=== PATIENT | female | born 1945 | race Caucasian/White ===

== ENCOUNTER → 2016-05-18 | Day surgery (SDC) | payer MEDICARE ==
[~2016-05-18] VITALS: Ht 149.9 cm; Wt 55.8 kg
[~2016-05-18] MED LIST: /PANT40TA; ACET65TA; ACETAMINOPHEN 325 MG TAB PO PRN; ACETYLCHOLINE OPHTH SOLN 1% 2ML As Ordered ONE; ACETYLCHOLINE OPHTH SOLN 1% 2ML XX ONE; ANTI25TA; ASPI1TAB PO; ASPI325T PO; ASPI32ECTA PO; ASPI81TA85 PO; ATOR40TA PO; AUGM500T34 PO; AcetaZOLAMIDE 500 MG ER CAP PO ONE; BABY81CH; BALANCED SALT IRRIGATION SOL 500ML GLASS BOTTLE (FOR OR EYE COMPOUND) IR ONE; BENA25CA PO; BSS with VANC/TOB/EPI for EYE CASES IR ONE; CALCIUM; CEFUROXIME 1MG/0.1ML INTRACAMERAL INJ As Ordered ONE; CEFUROXIME 1MG/0.1ML INTRACAMERAL INJ ICAM ONE; CHLO125TA PO; COLA100C2; CYCLOPENTOLATE 2% OPHTH SOLN XX ONE; D5W/0.2% SODIUM CHLORIDE 250 ML IV SCH; DOCU100C PO; FISHCAP; HEALON DUET (HEALON 10MG/ML 0.55ML & HEALON ENDOCOAT 30MG/ML 0.85ML) As Ordered ONE; HEALON DUET (HEALON 10MG/ML 0.55ML & HEALON ENDOCOAT 30MG/ML 0.85ML) XX ONE; KETO5OPD OS; KETOROLAC 0.5% OPHTH SOLN OS ONE; LEVO50TA45 PO; LEVO75TA4 PO; LIDOCAINE 1% SDV 5 ML VIAL As Ordered ONE; LIDOCAINE 1% SDV 5 ML VIAL XX ONE; LIDOCAINE 4% INJ 5 ML AMP OU ONE; LISI-538 PO; LISI10TA4; LISI10TA4 PO; METO12TA PO; MIDAZOLAM INJ 2 MG/2 ML VIAL (J2250) As Ordered ONE; MIRA255PW OR; NORV5TAB; OCUF0.3D OS; OFLOXACIN 0.3 % (OCUFLOX) OPTH SOL 5ML OS ONE; PAXI10TA2 PO; PHENYLEPHRINE 2.5% OPHTH SOL 2ML XX ONE; PLAV75TA2; POVIDONE-IODINE 5% OPHTH PREP SOL 30ML As Ordered ONE; PRED1SUS OS; PROPARACAINE 0.5% OPHTH SOL 15ML OS PRN; TRIMETHOBENZAMIDE 300 MG CAP PO PRN; TROPICAMIDE 1% OPHTH SOLN 2 ML XX ONE; TYLE325T5 PO; VITA200015 PO; VITAMI; VITMTA PO; ZEST20TA8 PO; ZOFR8TAB; fentaNYL 100 MCG/2 ML INJECTION (J3010) As Ordered ONE
[2016-05-18 10:05] VITALS: BP 189/86
--- NOTE | 2016-05-18 13:31 | RO ---
DATE OF PROCEDURE: 05/18/2016 PREPROCEDURE DIAGNOSES: Age-related nuclear cataract and astigmatism, left eye. POSTPROCEDURE DIAGNOSES: Age-related nuclear cataract and astigmatism, left eye. PROCEDURE PERFORMED: Phacoemulsification and posterior chamber intraocular lens implantation with toric lens, left eye. Lens used was a ZCT 600 19.5 diopter, 6 diopter cylinder placed at 20 degrees. SURGEON: Rowan Du MD BINDING BENCH WORKER: ANESTHESIA: Topical with sedation. DESCRIPTION OF PROCEDURE: The patient was prepped and draped in the usual fashion. A lid speculum was placed between the lids. The eye was fixated. A stab incision was made to the anterior chamber, and 1% nonpreserved Lidocaine was instilled. Then, viscoelastic was instilled. The eye was refixated. A 2.75 mm sapphire keratome was used to make a clear corneal temporal limbal incision. Capsulorrhexis was begun with a 30-gauge bent needle and then carried out in a circular fashion with capsulorrhexis forceps. The lens was hydrodissected, and then the phacoemulsification unit was used to make a groove in the nucleus and two meridians. The nucleus was then cracked into four quadrants. Each quadrant was removed with the phacoemulsification unit. Any remaining cortex was removed with the I and A unit. Capsular bag was refilled with viscoelastic. A posterior chamber intraocular lens was placed in the capsular bag without difficulty. Any remaining viscoelastic was removed with the I and A unit. The wound was hydrated, and Miochol and cefuroxime were instilled into the anterior chamber.
== END | disposition home or self-care (01) ==
LOC: M SDC 06:55
PROVIDERS: ATTEND Ophthalmology
DX: H25.12 Age-related nuclear cataract, left eye (principal); H52.202 Unspecified astigmatism, left eye; I11.9 Hypertensive heart disease without heart failure; E03.9 Hypothyroidism, unspecified; M81.0 Age-related osteoporosis without current pathological fracture; R41.3 Other amnesia; F41.9 Anxiety disorder, unspecified; E78.5 Hyperlipidemia, unspecified; Z91.19 Patient's noncompliance with other medical treatment and regimen; E04.1 Nontoxic single thyroid nodule; R60.9 Edema, unspecified; E55.9 Vitamin D deficiency, unspecified; Z86.73 Personal history of transient ischemic attack (TIA), and cerebral infarction without residual deficits; Z87.891 Personal history of nicotine dependence; Z79.899 Other long term (current) drug therapy; Z79.82 Long term (current) use of aspirin; Z88.1 Allergy status to other antibiotic agents; Z91.040 Latex allergy status
CPT/HCPCS: 66984; J2250; J3010; V2787

== ENCOUNTER 2016-10-24 14:21 | Emergency (ER) | payer MEDICARE, OTHER ==
[~2016-10-24] VITALS: Ht 147.3 cm; Wt 54.5 kg
[~2016-10-24 14:21] MED LIST changes: -ACETAMINOPHEN 325 MG TAB PO PRN; -ACETYLCHOLINE OPHTH SOLN 1% 2ML As Ordered ONE; -ACETYLCHOLINE OPHTH SOLN 1% 2ML XX ONE; +ASPI325T24 PO; -ASPI32ECTA PO; -ATOR40TA PO; +ATOR40TA75 PO; -AcetaZOLAMIDE 500 MG ER CAP PO ONE; -BALANCED SALT IRRIGATION SOL 500ML GLASS BOTTLE (FOR OR EYE COMPOUND) IR ONE; -BSS with VANC/TOB/EPI for EYE CASES IR ONE; -CEFUROXIME 1MG/0.1ML INTRACAMERAL INJ As Ordered ONE; -CEFUROXIME 1MG/0.1ML INTRACAMERAL INJ ICAM ONE; -CYCLOPENTOLATE 2% OPHTH SOLN XX ONE; -D5W/0.2% SODIUM CHLORIDE 250 ML IV SCH; -HEALON DUET (HEALON 10MG/ML 0.55ML & HEALON ENDOCOAT 30MG/ML 0.85ML) As Ordered ONE; -HEALON DUET (HEALON 10MG/ML 0.55ML & HEALON ENDOCOAT 30MG/ML 0.85ML) XX ONE; -KETOROLAC 0.5% OPHTH SOLN OS ONE; -LIDOCAINE 1% SDV 5 ML VIAL As Ordered ONE; -LIDOCAINE 1% SDV 5 ML VIAL XX ONE; -LIDOCAINE 4% INJ 5 ML AMP OU ONE; -MIDAZOLAM INJ 2 MG/2 ML VIAL (J2250) As Ordered ONE; +OCUF0.25 OS; -OCUF0.3D OS; -OFLOXACIN 0.3 % (OCUFLOX) OPTH SOL 5ML OS ONE; -PHENYLEPHRINE 2.5% OPHTH SOL 2ML XX ONE; -POVIDONE-IODINE 5% OPHTH PREP SOL 30ML As Ordered ONE; -PROPARACAINE 0.5% OPHTH SOL 15ML OS PRN; -TRIMETHOBENZAMIDE 300 MG CAP PO PRN; -TROPICAMIDE 1% OPHTH SOLN 2 ML XX ONE; -fentaNYL 100 MCG/2 ML INJECTION (J3010) As Ordered ONE
--- NOTE | 2016-10-24 15:22 | REP ---
Clinical: Acute altered mental status. Possible cerebrovascular accident. Correlation: MRI dated 07/30/2015 . Findings: Age-related atrophy and microvascular ischemic changes are appreciated. The ventricles and sulci are symmetric. Roy-white differentiation is maintained. There is no evidence for acute intracranial hemorrhage, mass/mass effect, pathology or infarction. No extra-axial fluid collection. Calvarium is intact. Paranasal sinuses and mastoid air cells are clear. Impression: Age related atrophy and microvascular ischemic changes. No acute intracranial hemorrhage, infarction, or mass/mass effect. Signed by Eduardo Pugh MD 10/24/2016 03:14 P
--- NOTE | 2016-10-24 15:33 | REP ---
Clinical: Cerebrovascular accident . Comparison: 07/30/2015 . Findings: The mediastinum and cardiac silhouette are stable and within normal limits for portable technique. The lung bruno are clear without acute consolidation, effusion, or pneumothorax. Skeletal structures are intact. Impression: Normal portable chest x-ray Signed by Eduardo Pugh MD 10/24/2016 03:25 P
[2016-10-24 15:50] LABS: BASO % 0.6 % (0.0-1.0); EOS # 0.1 K/mm3 (0.0-0.50); EOS % 1.3 % (0.0-3.0); LARGE UNSTAINED CELL # 0.2 K/mm3 (0.0-0.4); LARGE UNSTAINED CELL % 1.8 % (0.0-4.0); LYMPH # 1.8 K/mm3 (1.5-4.5); LYMPH % 18.4 % (24.0-44.0); MEAN CORPUSCULAR HEMOGLOBIN 32.4 pg (27.0-33.0); MEAN CORPUSCULAR HGB CONC 34.5 g/dl (32.0-36.5); MEAN CORPUSCULAR VOLUME 94.1 fl (80.0-96.0); MONO # 0.6 K/mm3 (0.0-0.8); NEUTROPHILS # 7.1 K/mm3 (1.8-7.7); NEUTROPHILS % 71.9 % (36.0-66.0); PLATELET COUNT, AUTOMATED 216 k/mm3 (150-450); RED CELL DISTRIBUTION WIDTH 12.8 % (11.5-14.5); WHITE BLOOD COUNT 9.9 K/mm3 (4.0-10.0)
[2016-10-24 15:57] LABS: INR 0.92
--- NOTE | 2016-10-24 15:59 | REP ---
[place] lumbar spine five views: There are no comparisons. Vertebral body heights and alignment are normal. There is parallax artifact in the upper lumbar/ lower thoracic spine. There is mild degenerative disc disease at every lumbar level. There is no spondylolysis or spondylolisthesis. There is mild facet osteoarthritis and L4, L5, S1. The pedicles and sacroiliac articulations are unremarkable. There is diffuse demineralization. Impression: Mild multilevel degenerative disc disease. Vertebral body heights appear normal. On the lateral view there is parallax artifact in the lower thoracic/ upper lumbar spine. There is mild facet osteoarthritis of the lower lumbar levels. If symptoms persist or worsen, consider MRI or CT. Signed by Js Lopez MD 10/24/2016 03:50 P
[2016-10-24 16:18] LABS: ANION GAP 4 MEQ/L (8-16); BLOOD UREA NITROGEN 15 MG/DL (7-18); CALCIUM LEVEL 9.2 MG/DL (8.8-10.2); CARBON DIOXIDE LEVEL 30 MEQ/L (21-32); CHLORIDE LEVEL 111 MEQ/L (98-107); GLOMERULAR FILTRATION RATE 57.9 (>39); GLUCOSE, FASTING 82 MG/DL (83-110); SODIUM LEVEL 145 MEQ/L (136-145)
[2016-10-24 18:24] VITALS: BP 180/94
--- NOTE | 2016-10-24 19:50 | REPUSA ---
Clinical history: syncope. Comparison: 07/30/2015. Technique: [id number] MRA images of the brain were obtained without administration of contrast. 3 -D MIP images were also obtained. Findings: The vascular structures extending from the distal carotid and vertebrobasilar arterial syst ems, through the kas[place] of [place], demonstrate normal caliber and contour.. The right vertebral arter y is dominant, but appears stable. There is no evidence of aneurysm, stenosis, or thrombosis. Impression: Unremarkable MRA examination of the brain.
--- NOTE | 2016-10-24 19:50 | REPUSA ---
MRI of the brain Clinical history: ssyncope. Comparison: 07/30/2015. Technique: Multiecho multiplanar MRI images of the brain were obtained without administration of cont rast. Diffusion weighted images with ADC mapping was also obtained. Findings: The ventricles and sulci are symmetric bilaterally. The brain parenchyma demonstrates diffuse, conf luent areas of T2 hyperintensity throughout the subcortical and periventricular white matter. This i s grossly unchanged since the prior study. There is no midline shift, mass effect, or extra-axial flu id collection. The midline intracranial structures do not demonstrate any gross abnormalities. The ce rvical cranial junction is intact. The orbits are unremarkable. The visualized paranasal sinuses and mastoid air cells are clear. The osseous structures and superficial soft tissues are unremarkable. Th e vascular structures demonstrate appropriate flow voids. Impression: No significant change in diffuse white matter changes, most consistent with severe chroni c small vessel ischemic disease. No evidence of acute infarct or hemorrhage identified at this time. Overall stable examination.
--- NOTE | 2016-10-24 20:07 | ECGEPIP ---
Stationary ECG Study [facility] - ED Test Date: 2016-10-24 Pat Name: JUAQUIN CARDOSO Department: Room: - Gender: F Supervisor Personnel Clerks: luis : 1945 Requested By: Agata Narayanan Order Number: [id number] Reading MD: Agata Narayanan Measurements Intervals [place] Rate: 69 P: 34 TN: 145 QRS: -32 QRSD: 95 T: 17 QT: 401 QTc: 430 Interpretive Statements SINUS RHYTHM MARKED LEFT AXIS DEVIATION NSTTW ABNORMALITY SIMILAR 07/30/15 Electronically Signed On 10-24-2016 20:07:11 EDT by Agata Narayanan
== END 2016-10-24 20:48 | disposition home or self-care (01) ==
LOC: M ED 15:48
DX: S00.03XA Contusion of scalp, initial encounter (principal); R29.810 Facial weakness; W19.XXXA Unspecified fall, initial encounter; Y92.89 Other specified places as the place of occurrence of the external cause; Y93.89 Activity, other specified; Y99.8 Other external cause status; E07.9 Disorder of thyroid, unspecified; Z86.73 Personal history of transient ischemic attack (TIA), and cerebral infarction without residual deficits; R42 Dizziness and giddiness; Z79.899 Other long term (current) drug therapy; Z79.82 Long term (current) use of aspirin; Z91.040 Latex allergy status

== ENCOUNTER → 2016-10-31 | Outpatient (REF) | payer MEDICARE, OTHER ==
[2016-10-31 21:48] LABS: FREE T4 1.17 NG/DL (0.76-1.46)
== END ==
LOC: M SFHCADAM 12:59
PROVIDERS: ATTEND Family Medicine
DX: R42 Dizziness and giddiness (principal); R05 Cough; H91.90 Unspecified hearing loss, unspecified ear; E04.1 Nontoxic single thyroid nodule
CPT/HCPCS: 84439; 84443; G0463

== ENCOUNTER 2017-03-29 07:22 | Day surgery (SDC) | payer OTHER ==
[~2017-03-29] VITALS: Ht 147.3 cm; Wt 54.0 kg
[~2017-03-29 07:22] MED LIST changes: +ACETAMINOPHEN 325 MG TAB PO PRN; +CYCLOPENTOLATE 2% OPHTH SOLN 2ML BTL OD ONE; +LIDOCAINE 3.5 % 1ML OPHTH TOPICAL GEL OU ONE; +OFLOXACIN 0.3 % (OCUFLOX) OPTH SOL 5ML OD ONE; +PHENYLEPHRINE 2.5% OPHTH SOL 2ML OD ONE; +PROPARACAINE 0.5% OPHTH SOL 15ML OD PRN; +TROPICAMIDE 1% OPHTH SOLN 2ML OD ONE
[2017-03-29] MEDS ORDERED: LIDOCAINE 1% SDV 5 ML VIAL As Ordered ONE (09:30)
[2017-03-29] MEDS ORDERED: POVIDONE-IODINE 5% OPHTH PREP SOL 30ML As Ordered ONE (09:30)
[2017-03-29] MEDS ORDERED: ACETYLCHOLINE OPHTH SOLN 1% 2ML (MIOCHOL-E) As Ordered ONE (09:30)
[2017-03-29] MEDS ORDERED: HEALON DUET (HEALON 10MG/ML 0.55ML & HEALON ENDOCOAT 30MG/ML 0.85ML) As Ordered ONE (09:31)
[2017-03-29] MEDS ORDERED: BALANCED SALT IRRIGATION SOLUTION 500ML BAG (FOR OR EYE MACHINE) As Ordered ONE (09:31)
[2017-03-29] MEDS ORDERED: CEFUROXIME 1MG/0.1ML INTRACAMERAL INJ As Ordered ONE (09:31)
[2017-03-29] MEDS ORDERED: MIDAZOLAM INJ 2 MG/2 ML VIAL (J2250) As Ordered ONE (09:58)
[2017-03-29] MEDS ORDERED: fentaNYL 100 MCG/2 ML INJECTION (J3010) As Ordered ONE (09:58)
[2017-03-29 10:40] VITALS: BP 174/86
[2017-03-29] MEDS ORDERED: AcetaZOLAMIDE 500 MG ER CAP PO ONE (10:45)
[2017-03-29] MEDS ORDERED: TRIMETHOBENZAMIDE 300 MG CAP PO PRN (10:45)
[2017-03-29] MEDS ORDERED: KETOROLAC 0.5% OPHTH SOLN OD ONE (10:45)
--- NOTE | 2017-03-29 11:23 | RO ---
DATE OF PROCEDURE: 03/29/2017 PREPROCEDURE DIAGNOSIS: Age-related nuclear cataract right eye. POSTPROCEDURE DIAGNOSIS: Age-related nuclear cataract right eye. PROCEDURE: Phacoemulsification and posterior chamber intraocular lens implantation, right eye. Lens used is an AU 00T0 18.5 diopter. SURGEON: Rowan Du MD FEED WEIGHER: ANESTHESIA: Topical with sedation. DESCRIPTION OF PROCEDURE: The patient was prepped and draped in the usual fashion. A lid speculum was placed between the lids. The eye was fixated. A stab incision was made to the anterior chamber, and 1% nonpreserved Lidocaine was instilled. Then, viscoelastic was instilled. The eye was refixated. A 2.75 mm sapphire keratome was used to make a clear corneal temporal limbal incision. Capsulorrhexis was begun with a 30-gauge bent needle and then carried out in a circular fashion with capsulorrhexis forceps. The lens was hydrodissected, and then the phacoemulsification unit was used to make a groove in the nucleus and two meridians. The nucleus was then cracked into four quadrants. Each quadrant was removed with the phacoemulsification unit. Any remaining cortex was removed with the I+A unit. Capsular bag was refilled with viscoelastic. A posterior chamber intraocular lens was placed in the capsular bag without difficulty. Any remaining viscoelastic was removed with the I+A unit. The wound was hydrated, and Miochol and cefuroxime were instilled into the anterior chamber. The patient tolerated the procedure well and went to the recovery room in stable condition.
== END 2017-03-29 10:53 | disposition home or self-care (01) ==
LOC: M SDC 07:22
PROVIDERS: ATTEND Ophthalmology
DX: H25.11 Age-related nuclear cataract, right eye (principal); I10 Essential (primary) hypertension; E78.5 Hyperlipidemia, unspecified; E04.1 Nontoxic single thyroid nodule; Z79.899 Other long term (current) drug therapy; Z79.82 Long term (current) use of aspirin; Z87.891 Personal history of nicotine dependence; Z88.0 Allergy status to penicillin
CPT/HCPCS: 66984; J2250; J3010; V2632

== ENCOUNTER 2017-07-09 10:13 | Inpatient (IN) | payer OTHER ==
[2017-07-09 10:34] LABS: BEDSIDE GLUCOSE 78 MG/DL (83-110)
[2017-07-09 10:47] LABS: BASO # 0.1 10^3/uL (0.0-0.2); BASO % 0.5 % (0.0-1.0); EOS # 0.2 10^3/uL (0.0-0.50); EOS % 1.6 % (0.0-3.0); HEMATOCRIT 45.3 % (36.0-47.0); HEMOGLOBIN 14.9 g/dl (12.0-16.0); IMMATURE GRANULOCYTE % 0.3 % (0-3.0); LYMPH # 2.4 10^3/uL (1.5-4.5); LYMPH % 21.9 % (24.0-44.0); MEAN CORPUSCULAR HEMOGLOBIN 30.4 pg (27.0-33.0); MEAN CORPUSCULAR HGB CONC 32.9 g/dl (32.0-36.5); MEAN CORPUSCULAR VOLUME 92.4 fl (80.0-96.0); MONO # 0.8 10^3/uL (0.0-0.8); MONO % 7.6 % (0.0-5.0); NEUTROPHILS # 7.4 10^3/uL (1.8-7.7); NEUTROPHILS % 68.1 % (36.0-66.0); PLATELET COUNT, AUTOMATED 252 10^3/uL (150-450); RED CELL DISTRIBUTION WIDTH 13.2 % (11.5-14.5); WHITE BLOOD COUNT 10.9 10^3/uL (4.0-10.0)
[2017-07-09 10:55] LABS: INR 0.88
[2017-07-09 10:56] LABS: PARTIAL THROMBOPLASTIN TIME 30.9 SECONDS (26.8-37.9)
[2017-07-09 10:58] LABS: ANION GAP 5 MEQ/L (8-16); BLOOD UREA NITROGEN 12 MG/DL (7-18); CALCIUM LEVEL 8.5 MG/DL (8.8-10.2); CARBON DIOXIDE LEVEL 29 MEQ/L (21-32); CHLORIDE LEVEL 109 MEQ/L (98-107); CPK CREATINE PHOSPHOKINASE 129 U/L (26-192); CREATININE FOR GFR 0.98 MG/DL (0.55-1.30); GLOMERULAR FILTRATION RATE 59.2 (>39); GLUCOSE, FASTING 88 MG/DL (70-100); POTASSIUM SERUM 3.8 MEQ/L (3.5-5.1); SODIUM LEVEL 143 MEQ/L (136-145); TROPONIN I < 0.02 NG/ML (< 0.10)
[2017-07-09 10:59] LABS: CK-MB VALUE MASS 2.5 NG/ML (0.0-3.6); MB/CK RELATIVE INDEX 1.93 (< OR =4)
[2017-07-09] MEDS: LISINOPRIL 20 MG TAB PO ×2 (16:12→21:03)
[2017-07-09 16:50] LABS: FREE T4 1.17 NG/DL (0.76-1.46)
[2017-07-09] MEDS: hydrALAZINE INJ 20 MG/ML VIAL IV (19:04)
[2017-07-09] MEDS: ASPIRIN ENTERIC 325 MG TAB PO (21:03)
[2017-07-10] MEDS: ACETAMINOPHEN TAB 650MG DOSE (2X325MG) PO (00:10)
[2017-07-10] MEDS: hydrALAZINE INJ 20 MG/ML VIAL IV ×5 (01:00→18:27)
[2017-07-10] MEDS: LEVOTHYROXINE 50MCG TABLET (0.05MG) PO (05:48)
[2017-07-10 07:49] LABS: BASO % 0.3 % (0.0-1.0); EOS # 0.1 10^3/uL (0.0-0.50); EOS % 1.3 % (0.0-3.0); HEMATOCRIT 45.1 % (36.0-47.0); IMMATURE GRANULOCYTE % 0.2 % (0-3.0); LYMPH # 1.6 10^3/uL (1.5-4.5); LYMPH % 17.4 % (24.0-44.0); MEAN CORPUSCULAR HEMOGLOBIN 30.2 pg (27.0-33.0); MEAN CORPUSCULAR HGB CONC 33.3 g/dl (32.0-36.5); MEAN CORPUSCULAR VOLUME 90.7 fl (80.0-96.0); MONO # 0.5 10^3/uL (0.0-0.8); MONO % 5.8 % (0.0-5.0); NEUTROPHILS # 6.7 10^3/uL (1.8-7.7); PLATELET COUNT, AUTOMATED 246 10^3/uL (150-450); RED BLOOD COUNT 4.97 10^6/uL (4.00-5.40); RED CELL DISTRIBUTION WIDTH 13.2 % (11.5-14.5)
[2017-07-10 08:24] LABS: ALBUMIN 3.5 GM/DL (3.2-5.2); ALBUMIN/GLOBULIN RATIO 1.17 (1.00-1.93); ALKALINE PHOSPHATASE 85 U/L (45-117); ALT/SGPT 17 U/L (12-78); ANION GAP 8 MEQ/L (8-16); AST/SGOT 15 U/L (7-37); BILIRUBIN,TOTAL 0.6 MG/DL (0.2-1.0); BLOOD UREA NITROGEN 12 MG/DL (7-18); CALCIUM LEVEL 8.3 MG/DL (8.8-10.2); CARBON DIOXIDE LEVEL 25 MEQ/L (21-32); CHLORIDE LEVEL 109 MEQ/L (98-107); CREATININE FOR GFR 0.75 MG/DL (0.55-1.30); GLOMERULAR FILTRATION RATE > 60.0 (>39); GLUCOSE, FASTING 91 MG/DL (70-100); POTASSIUM SERUM 3.6 MEQ/L (3.5-5.1); SODIUM LEVEL 142 MEQ/L (136-145); TOTAL PROTEIN 6.5 GM/DL (6.4-8.2)
[2017-07-10] MEDS: ENOXAPARIN 30 MG/0.3 ML SYR (J1650) SC (11:02)
[2017-07-10] MEDS: levETIRAcetam 250MG TABLET (KEPPRA) PO ×2 (11:12→20:40)
[2017-07-10] MEDS ORDERED: VARIBAR PUDDING 40% w/v 230ML TUBE As Ordered (11:29)
[2017-07-10] MEDS ORDERED: E-Z-PAQUE 96% w/w SUSP 176GM BTL As Ordered (11:29)
[2017-07-10] MEDS ORDERED: VARIBAR NECTAR 40% w/v 240ML SUSP BTL As Ordered (11:29)
[2017-07-10] MEDS: NICOTINE 21MG/24HR 1 EA TRANSDERMAL TD (16:49)
[2017-07-10] MEDS: ATORVASTATIN 20 MG TAB PO (18:18)
[2017-07-10] MEDS: LISINOPRIL 20 MG TAB PO (20:41)
[2017-07-10] MEDS: ASPIRIN ENTERIC 325 MG TAB PO (20:41)
[2017-07-11] MEDS: hydrALAZINE INJ 20 MG/ML VIAL IV ×4 (01:10→18:26)
[2017-07-11] MEDS ORDERED: SLF 3 ML SYR IV (04:15)
[2017-07-11] MEDS: LEVOTHYROXINE 50MCG TABLET (0.05MG) PO (06:14)
[2017-07-11] MEDS: SLF 3 ML SYR IV ×3 (06:14→22:00)
[2017-07-11] MEDS: ENOXAPARIN 30 MG/0.3 ML SYR (J1650) SC (09:08)
[2017-07-11] MEDS: ATORVASTATIN 20 MG TAB PO (09:09)
[2017-07-11] MEDS: levETIRAcetam 250MG TABLET (KEPPRA) PO ×2 (09:09→21:00)
[2017-07-11] MEDS: LISINOPRIL 20 MG TAB PO ×2 (09:09→23:16)
[2017-07-11] MEDS: NICOTINE 21MG/24HR 1 EA TRANSDERMAL TD (09:09)
[2017-07-11] MEDS: levETIRAcetam INJection 500 MG in D5W MINI-BAG PLUS 100 ML IV (18:49)
[2017-07-11 19:15] LABS: PROLACTIN 12.4 NG/ML
[2017-07-11 21:48] LABS: AMPHETAMINES LEVEL URINE NEGATIVE (NEGATIVE); BARBITURATES URINE NEGATIVE (NEGATIVE); BENZODIAZEPINES URINE NEGATIVE (NEGATIVE); CANNABINOIDS URINE NEGATIVE (NEGATIVE); COCAINE METABOLITE URINE NEGATIVE (NEGATIVE); METHADONE URINE NEGATIVE (NEGATIVE); OPIATES URINE NEGATIVE (NEGATIVE); PHENCYCLIDINE URINE NEGATIVE (NEGATIVE)
[2017-07-11] MEDS: ASPIRIN ENTERIC 325 MG TAB PO (23:16)
[2017-07-11 23:31] LABS: BACTERIA, URINE AUTO 1+ (NEGATIVE); RBC, URINE AUTO 3 /HPF (0-3); SQUAMOUS EPITHELIAL CELL UR AU 0 /HPF (0-6); WBC, URINE AUTO 4 /HPF (0-3)
[2017-07-12] MEDS: hydrALAZINE INJ 20 MG/ML VIAL IV ×4 (01:00→18:38)
[2017-07-12 03:35] LABS: APPEARANCE, URINE CLEAR (CLEAR); BILIRUBIN, URINE AUTO NEGATIVE (NEGATIVE); BLOOD, URINE BLOOD NEGATIVE (NEGATIVE); COLOR, URINE YELLOW (YELLOW); GLUCOSE, URINE (UA) AUTO NEGATIVE (NEGATIVE); KETONE, URINE AUTO NEGATIVE (NEGATIVE); LEUKOCYTE ESTERASE, URINE AUTO TRACE (NEGATIVE); NITRITE, URINE AUTO NEGATIVE (NEGATIVE); PROTEIN, URINE AUTO NEGATIVE (NEGATIVE); SPECIFIC GRAVITY URINE AUTO 1.009 (1.002-1.035); UROBILINOGEN, URINE AUTO 0.2 mg/dL (0.0-2.0)
[2017-07-12 05:21] LABS: BASO % 0.5 % (0.0-1.0); EOS # 0.2 10^3/uL (0.0-0.50); EOS % 2.4 % (0.0-3.0); HEMATOCRIT 42.4 % (36.0-47.0); HEMOGLOBIN 14.1 g/dl (12.0-16.0); IMMATURE GRANULOCYTE % 0.2 % (0-3.0); LYMPH # 2.4 10^3/uL (1.5-4.5); LYMPH % 27.4 % (24.0-44.0); MEAN CORPUSCULAR HEMOGLOBIN 30.5 pg (27.0-33.0); MEAN CORPUSCULAR HGB CONC 33.3 g/dl (32.0-36.5); MEAN CORPUSCULAR VOLUME 91.6 fl (80.0-96.0); MONO # 0.7 10^3/uL (0.0-0.8); MONO % 7.7 % (0.0-5.0); NEUTROPHILS # 5.4 10^3/uL (1.8-7.7); NEUTROPHILS % 61.8 % (36.0-66.0); PLATELET COUNT, AUTOMATED 236 10^3/uL (150-450); RED BLOOD COUNT 4.63 10^6/uL (4.00-5.40); RED CELL DISTRIBUTION WIDTH 13.5 % (11.5-14.5); WHITE BLOOD COUNT 8.7 10^3/uL (4.0-10.0)
[2017-07-12 05:44] LABS: ALBUMIN 3.1 GM/DL (3.2-5.2); ALBUMIN/GLOBULIN RATIO 0.94 (1.00-1.93); ALKALINE PHOSPHATASE 69 U/L (45-117); ALT/SGPT 18 U/L (12-78); ANION GAP 6 MEQ/L (8-16); AST/SGOT 15 U/L (7-37); BILIRUBIN,TOTAL 0.4 MG/DL (0.2-1.0); BLOOD UREA NITROGEN 16 MG/DL (7-18); CALCIUM LEVEL 8.1 MG/DL (8.8-10.2); CARBON DIOXIDE LEVEL 27 MEQ/L (21-32); CHLORIDE LEVEL 111 MEQ/L (98-107); CREATININE FOR GFR 0.76 MG/DL (0.55-1.30); GLOMERULAR FILTRATION RATE > 60.0 (>39); GLUCOSE, FASTING 83 MG/DL (70-100); POTASSIUM SERUM 3.7 MEQ/L (3.5-5.1); SODIUM LEVEL 144 MEQ/L (136-145); TOTAL PROTEIN 6.4 GM/DL (6.4-8.2)
[2017-07-12] MEDS: SLF 3 ML SYR IV ×3 (06:00→21:00)
[2017-07-12] MEDS: LEVOTHYROXINE 50MCG TABLET (0.05MG) PO (06:45)
[2017-07-12] MEDS: ATORVASTATIN 20 MG TAB PO (09:12)
[2017-07-12] MEDS: ENOXAPARIN 30 MG/0.3 ML SYR (J1650) SC (09:12)
[2017-07-12] MEDS: levETIRAcetam 250MG TABLET (KEPPRA) PO ×2 (09:12→20:13)
[2017-07-12] MEDS: LISINOPRIL 20 MG TAB PO ×2 (09:12→20:13)
[2017-07-12] MEDS: NICOTINE 21MG/24HR 1 EA TRANSDERMAL TD (09:12)
[2017-07-12] MEDS: ASPIRIN ENTERIC 325 MG TAB PO (20:13)
[2017-07-13] MEDS: hydrALAZINE INJ 20 MG/ML VIAL IV ×2 (00:30→06:16)
[2017-07-13 05:35] LABS: BASO % 0.5 % (0.0-1.0); EOS # 0.2 10^3/uL (0.0-0.50); EOS % 2.6 % (0.0-3.0); HEMATOCRIT 40.9 % (36.0-47.0); HEMOGLOBIN 13.4 g/dl (12.0-16.0); IMMATURE GRANULOCYTE % 0.2 % (0-3.0); LYMPH # 2.5 10^3/uL (1.5-4.5); LYMPH % 28.1 % (24.0-44.0); MEAN CORPUSCULAR HEMOGLOBIN 30.1 pg (27.0-33.0); MEAN CORPUSCULAR HGB CONC 32.8 g/dl (32.0-36.5); MEAN CORPUSCULAR VOLUME 91.9 fl (80.0-96.0); MONO # 0.7 10^3/uL (0.0-0.8); NEUTROPHILS # 5.3 10^3/uL (1.8-7.7); NEUTROPHILS % 60.6 % (36.0-66.0); PLATELET COUNT, AUTOMATED 226 10^3/uL (150-450); RED BLOOD COUNT 4.45 10^6/uL (4.00-5.40); RED CELL DISTRIBUTION WIDTH 13.2 % (11.5-14.5); WHITE BLOOD COUNT 8.8 10^3/uL (4.0-10.0)
[2017-07-13 06:02] LABS: ALKALINE PHOSPHATASE 68 U/L (45-117); ALT/SGPT 25 U/L (12-78); ANION GAP 6 MEQ/L (8-16); AST/SGOT 24 U/L (7-37); BILIRUBIN,TOTAL 0.4 MG/DL (0.2-1.0); BLOOD UREA NITROGEN 17 MG/DL (7-18); CALCIUM LEVEL 8.1 MG/DL (8.8-10.2); CARBON DIOXIDE LEVEL 28 MEQ/L (21-32); CHLORIDE LEVEL 111 MEQ/L (98-107); CREATININE FOR GFR 0.78 MG/DL (0.55-1.30); GLOMERULAR FILTRATION RATE > 60.0 (>39); GLUCOSE, FASTING 77 MG/DL (70-100); POTASSIUM SERUM 3.7 MEQ/L (3.5-5.1); SODIUM LEVEL 145 MEQ/L (136-145)
[2017-07-13] MEDS: LEVOTHYROXINE 50MCG TABLET (0.05MG) PO (06:16)
[2017-07-13] MEDS: SLF 3 ML SYR IV (06:16)
[2017-07-13] MEDS: NICOTINE 21MG/24HR 1 EA TRANSDERMAL TD (09:11)
[2017-07-13] MEDS: ATORVASTATIN 20 MG TAB PO (09:11)
[2017-07-13] MEDS: levETIRAcetam 250MG TABLET (KEPPRA) PO (09:11)
[2017-07-13] MEDS: LISINOPRIL 20 MG TAB PO (09:12)
[2017-07-13] MEDS: ENOXAPARIN 30 MG/0.3 ML SYR (J1650) SC (09:13)
[2017-07-13] MEDS: amLODIPine 5 MG TAB PO (09:13)
== END 2017-07-13 12:43 | disposition home or self-care (01) | DRG 101 ==
LOC: M ED 10:13 → M ED INP 16:16 → M PCU 20:34
DX: G40.89 Other seizures (principal); I69.354 Hemiplegia and hemiparesis following cerebral infarction affecting left non-dominant side; F43.21 Adjustment disorder with depressed mood; I11.9 Hypertensive heart disease without heart failure; E78.2 Mixed hyperlipidemia; R26.9 Unspecified abnormalities of gait and mobility; R20.0 Anesthesia of skin; L30.9 Dermatitis, unspecified; R13.10 Dysphagia, unspecified; G31.84 Mild cognitive impairment of uncertain or unknown etiology; E03.9 Hypothyroidism, unspecified; E55.9 Vitamin D deficiency, unspecified; R41.89 Other symptoms and signs involving cognitive functions and awareness; M81.0 Age-related osteoporosis without current pathological fracture; Z79.82 Long term (current) use of aspirin; Z91.040 Latex allergy status; Z88.8 Allergy status to other drugs, medicaments and biological substances; Z87.891 Personal history of nicotine dependence

== ENCOUNTER → 2017-09-21 | Outpatient (CLI) | payer OTHER | LOC: M WHC 14:11 | DX: Z12.31 Encounter for screening mammogram for malignant neoplasm of breast (principal) | CPT/HCPCS: 77067 ==

== ENCOUNTER → 2017-11-16 | Outpatient (REF) | payer OTHER ==
[2017-11-16 19:26] LABS: TOTAL 25(OH) VITAMIN D 40.6 NG/ML (30.0-100.0)
[2017-11-16 19:30] LABS: ALBUMIN/GLOBULIN RATIO 1.14 (1.00-1.93); ALKALINE PHOSPHATASE 100 U/L (45-117); ALT/SGPT 25 U/L (12-78); ANION GAP 7 MEQ/L (8-16); AST/SGOT 17 U/L (7-37); BILIRUBIN,TOTAL 0.5 MG/DL (0.2-1.0); BLOOD UREA NITROGEN 12 MG/DL (7-18); CARBON DIOXIDE LEVEL 30 MEQ/L (21-32); CHLORIDE LEVEL 109 MEQ/L (98-107); CHOLESTEROL LEVEL 134 MG/DL (<200); CHOLESTEROL RISK RATIO 1.942 (<5); CREATININE FOR GFR 0.74 MG/DL (0.55-1.30); FREE T4 1.12 NG/DL (0.76-1.46); GLOMERULAR FILTRATION RATE > 60.0 (>39); GLUCOSE, FASTING 76 MG/DL (70-100); HDL CHOLESTEROL 69 MG/DL (>40); LDL CHOLESTEROL 50.4 MG/DL (<100); NON-HDL-C 65 MG/DL; POTASSIUM SERUM 3.4 MEQ/L (3.5-5.1); SODIUM LEVEL 146 MEQ/L (136-145); TOTAL PROTEIN 7.5 GM/DL (6.4-8.2); TRIGLYCERIDES LEVEL 73 MG/DL (<150)
== END ==
LOC: M SFHCADAM 15:09
DX: E78.2 Mixed hyperlipidemia (principal); E55.9 Vitamin D deficiency, unspecified; Z79.899 Other long term (current) drug therapy; Z72.0 Tobacco use
CPT/HCPCS: 84443

== ENCOUNTER → 2018-01-02 | Outpatient (CLI) | payer OTHER ==
[~2018-01-02] MED LIST changes: -/PANT40TA; -ACET65TA; -ACETAMINOPHEN 325 MG TAB PO PRN; -ANTI25TA; -ASPI1TAB PO; -ASPI325T PO; -ASPI325T24 PO; -ASPI81TA85 PO; -ATOR40TA75 PO; -AUGM500T34 PO; -BABY81CH; -BENA25CA PO; -CALCIUM; -CHLO125TA PO; -COLA100C2; -CYCLOPENTOLATE 2% OPHTH SOLN 2ML BTL OD ONE; -DOCU100C PO; -FISHCAP; +GASTROGRAFIN SOLUTION 30ML (Q9963) As Ordered; +ISOVUE-370 76% 100ML VIAL (Q9967) As Ordered; -KETO5OPD OS; -LEVO50TA45 PO; -LEVO75TA4 PO; -LIDOCAINE 3.5 % 1ML OPHTH TOPICAL GEL OU ONE; -LISI-538 PO; -LISI10TA4; -LISI10TA4 PO; -METO12TA PO; -MIRA255PW OR; -NORV5TAB; -OCUF0.25 OS; -OFLOXACIN 0.3 % (OCUFLOX) OPTH SOL 5ML OD ONE; -PAXI10TA2 PO; -PHENYLEPHRINE 2.5% OPHTH SOL 2ML OD ONE; -PLAV75TA2; -PRED1SUS OS; -PROPARACAINE 0.5% OPHTH SOL 15ML OD PRN; -TROPICAMIDE 1% OPHTH SOLN 2ML OD ONE; -TYLE325T5 PO; -VITA200015 PO; -VITAMI; -VITMTA PO; -ZEST20TA8 PO; -ZOFR8TAB
== END ==
LOC: M RAD 08:20
DX: R63.4 Abnormal weight loss (principal)
CPT/HCPCS: Q9963

== ENCOUNTER 2018-02-02 10:35 | Day surgery (SDC) | payer OTHER ==
[2018-02-02] MEDS: NS 1,000 ML IV (07:00)
[~2018-02-02 10:35] MED LIST changes: -GASTROGRAFIN SOLUTION 30ML (Q9963) As Ordered; -ISOVUE-370 76% 100ML VIAL (Q9967) As Ordered; +LIDOCAINE 2% INJ 100 MG/5 ML SDV (FOR ANES.) As Ordered; +PROPOFOL 200 MG/20 ML VIAL As Ordered
== END 2018-02-02 13:30 | disposition home or self-care (01) ==
LOC: M OPP 10:35
DX: R63.4 Abnormal weight loss (principal); Z86.010 Personal history of colon polyps; K57.30 Diverticulosis of large intestine without perforation or abscess without bleeding; K64.8 Other hemorrhoids; K44.9 Diaphragmatic hernia without obstruction or gangrene; I10 Essential (primary) hypertension; E78.5 Hyperlipidemia, unspecified; E03.9 Hypothyroidism, unspecified; R01.1 Cardiac murmur, unspecified; Z87.19 Personal history of other diseases of the digestive system; G93.40 Encephalopathy, unspecified; M19.90 Unspecified osteoarthritis, unspecified site; M81.0 Age-related osteoporosis without current pathological fracture; F41.9 Anxiety disorder, unspecified; F32.9 Major depressive disorder, single episode, unspecified; F03.90 Unspecified dementia, unspecified severity, without behavioral disturbance, psychotic disturbance, mood disturbance, and anxiety; I63.9 Cerebral infarction, unspecified; F17.210 Nicotine dependence, cigarettes, uncomplicated; Z88.0 Allergy status to penicillin; Z91.040 Latex allergy status; Z79.82 Long term (current) use of aspirin; Z79.899 Other long term (current) drug therapy; Z80.9 Family history of malignant neoplasm, unspecified
CPT/HCPCS: 45378

== ENCOUNTER 2018-04-12 19:57 | Emergency (ER) | payer OTHER ==
[~2018-04-12] VITALS: Ht 149.9 cm; Wt 120.0 kg
[~2018-04-12 19:57] MED LIST changes: +/PANT40TA; +ACET65TA; +ALEN70TA57 PO; +AMLO5TAB6 PO; +ANTI25TA; +ASPI1TAB PO; +ASPI325T PO; +ASPI325T25 PO; +ASPI81TA85 PO; +ATOR40TA75 PO; +AUGM500T34 PO; +BABY81CH; +BENA25CA PO; +CALCIUM; +CHLO125TA PO; +COLA100C2; +DOCU100C PO; +FISHCAP; +KEPP250T5 PO; +KETO5OPD OS; +LEVO50TA45 PO; +LEVO75TA4 PO; -LIDOCAINE 2% INJ 100 MG/5 ML SDV (FOR ANES.) As Ordered; +LISI-538 PO; +LISI10TA4; +LISI10TA4 PO; +METO12TA PO; +MIRA255PW OR; +NICO21PAT TD; +NORV5TAB; +OCUF0.25 OS; +PAXI10TA2 PO; +PLAV75TA2; +PRED1SUS2 OS; -PROPOFOL 200 MG/20 ML VIAL As Ordered; +SYNT50TA PO; +TYLE325T5 PO; +VITA200015 PO; +VITAMI; +VITMTA PO; +ZEST20TA8 PO; +ZOFR8TAB
--- NOTE | 2018-04-12 20:42 | REPVR ---
EXAM: CT Head Without Contrast EXAM DATE/TIME: 04/12/2018 8:23 PM CLINICAL HISTORY: 72 years old, female; Injury or trauma; Fall; Additional info: Tr TECHNIQUE: Axial computed tomography images of the head/brain without contrast. All CT scans at this facility use at least one of these dose optimization techniques: automated exposure control; mA and/or kV adjustment per patient size (includes targeted exams where dose is matched to clinical indication); or iterative reconstruction. COMPARISON: CT Head without contrast 07/09/2017 10:18 AM FINDINGS: Brain: Global cerebral atrophy consistent with patient's age. Decreased attenuation within the white matter tracts of both cerebral hemispheres, nonspecific. These findings are typically seen with small vessel disease/chronic white matter ischemic changes of aging. Old bilateral basal ganglia lacunar infarcts. No intracranial hemorrhage or mass effect. Ventricles: Unremarkable. No ventriculomegaly. Bones/joints: Unremarkable. No acute fracture. Sinuses: Minimal mucosal thickening of the left maxillary sinus. No sinus fluid level. Mastoid air cells: Normal as visualized. No mastoid effusion. Soft tissues: Unremarkable. IMPRESSION: No acute intracranial abnormality. Electronically signed by: Moses Wills On 04/12/2018 20:42:08 PM
--- NOTE | 2018-04-12 20:44 | REPVR ---
EXAM: CT Cervical Spine Without Contrast EXAM DATE/TIME: 04/12/2018 8:23 PM CLINICAL HISTORY: 72 years old, female; Injury or trauma; Fall; Initial encounter; Abrasion; Additional info: Tr TECHNIQUE: Axial computed tomography images of the cervical spine without intravenous contrast. All CT scans at this facility use at least one of these dose optimization techniques: automated exposure control; mA and/or kV adjustment per patient size (includes targeted exams where dose is matched to clinical indication); or iterative reconstruction. Coronal and sagittal reformatted images were created and reviewed. COMPARISON: No relevant prior studies available. FINDINGS: Vertebrae: Mild degenerative disc disease and facet arthrosis throughout the cervical spine. Normal bone density. No fracture or subluxation. Discs/Spinal canal/Neural foramina: No high-grade bony spinal or foraminal stenosis. Prevertebral Space: Unremarkable prevertebral soft tissues. Soft tissues: Unremarkable. Lungs: Lung apices are normal. Vasculature: Calcified plaque within the right and left proximal internal carotid arteries. IMPRESSION: No fracture or subluxation. Electronically signed by: Moses Wills On 04/12/2018 20:44:50 PM
[2018-04-12] MEDS ORDERED: PROPOFOL 200 MG/20 ML VIAL As Ordered ONE (22:03)
[2018-04-12] MEDS ORDERED: NS 1,000 ML IV ONE (22:15)
[2018-04-12 22:25] VITALS: BP 146/70
[2018-04-13] MEDS ORDERED: PROPOFOL 200 MG/20 ML VIAL IV ONE
--- NOTE | 2018-04-13 09:35 | REP ---
Left elbow: Two views. History: Injury. Comparison left elbow radiographs are from June 03, 2013. Findings: There is posterior fracture dislocation of the elbow. The fracture involves the coronoid process of the proximal ulna. Fracture fragment from from the coronoid process is displaced anteriorly. The proximal radial ulnar articulation is preserved. Impression: Fracture dislocation left elbow. Electronically Signed by Cj Diego MD 04/13/2018 08:21 A
--- NOTE | 2018-04-13 09:35 | REP ---
Left shoulder: Four views. History: Injury. Findings: Four views of the left shoulder are compared with June 03, 2013 prior radiographs of the humerus. The glenohumeral and acromioclavicular joints are normally aligned. There is some diffuse osteopenia. No fracture is seen. No subluxation is noted. Periarticular soft tissues are unremarkable. Impression: Diffuse osteopenia. Otherwise negative left shoulder radiographs. No fracture seen. Electronically Signed by Cj Diego MD 04/13/2018 08:19 A
--- NOTE | 2018-04-13 09:36 | REP ---
Left elbow: Three views. History: Post reduction. Findings: The ulnotrochlear and radiocapitellar articulations are reduced. Coronoid process fracture of the proximal ulna persists. The fracture fragment is displaced somewhat and possibly rotated. Electronically Signed by Cj Diego MD 04/13/2018 08:29 A
--- NOTE | 2018-04-15 08:24 | ED PDOC ---
Post-Departure Follow-Up dr lomeli and dr dolan faxed formal report of left elbow for fu Anna Patel MD Apr 15, 2018 08:24
== END 2018-04-12 23:59 | disposition home or self-care (01) ==
LOC: M ED 19:57
DX: S53.105A Unspecified dislocation of left ulnohumeral joint, initial encounter (principal); S52.042A Displaced fracture of coronoid process of left ulna, initial encounter for closed fracture; M85.812 Other specified disorders of bone density and structure, left shoulder; W06.XXXA Fall from bed, initial encounter; Y92.099 Unspecified place in other non-institutional residence as the place of occurrence of the external cause; Y93.89 Activity, other specified; Y99.9 Unspecified external cause status; I10 Essential (primary) hypertension; Z72.0 Tobacco use; Z79.899 Other long term (current) drug therapy; Z88.0 Allergy status to penicillin; Z91.040 Latex allergy status

== ENCOUNTER → 2018-08-29 | Outpatient (REF) | payer OTHER ==
[~2018-08-29] MED LIST changes: -/PANT40TA; -ALEN70TA57 PO; +ALEN70TA74 PO; +ASPI-1 PO; +ASPI-255 PO; -ASPI1TAB PO; -ASPI325T PO; -ASPI325T25 PO; +ASPI81TA26 PO; +KETO0.5S2 OS; -KETO5OPD OS; +METO-346 PO; -METO12TA PO; -MIRA255PW OR; +ONDA-227; +POLY1POW4 OR; +PROT1TAB2; -ZOFR8TAB
[2018-08-29 21:38] LABS: ALT/SGPT 21 U/L (12-78); BILIRUBIN,TOTAL 0.5 MG/DL (0.2-1.0); BLOOD UREA NITROGEN 12 MG/DL (7-18); CALCIUM LEVEL 8.7 MG/DL (8.8-10.2); CARBON DIOXIDE LEVEL 29 MEQ/L (21-32); CHLORIDE LEVEL 108 MEQ/L (98-107); CHOLESTEROL LEVEL 179 MG/DL (<200); CHOLESTEROL RISK RATIO 3.086 (<5); CREATININE FOR GFR 0.84 MG/DL (0.55-1.30); FREE T4 1.39 NG/DL (0.76-1.46); GLOMERULAR FILTRATION RATE > 60.0 (>39); GLUCOSE, FASTING 69 MG/DL (70-100); HDL CHOLESTEROL 58 MG/DL (>40); LDL CHOLESTEROL 101 MG/DL (<100); NON-HDL-C 121 MG/DL; POTASSIUM SERUM 3.7 MEQ/L (3.5-5.1); SODIUM LEVEL 143 MEQ/L (136-145); TOTAL PROTEIN 7.4 GM/DL (6.4-8.2); TRIGLYCERIDES LEVEL 101 MG/DL (<150)
== END ==
LOC: M SFHCADAM 11:48
PROVIDERS: ATTEND Family Medicine
DX: I11.9 Hypertensive heart disease without heart failure (principal); E03.9 Hypothyroidism, unspecified; E78.2 Mixed hyperlipidemia

== ENCOUNTER 2019-09-25 20:24 | Emergency (ER) | payer MEDICARE ==
[~2019-09-25] VITALS: Ht 149.9 cm; Wt 45.2 kg
[2019-09-25] MEDS ORDERED: NS 500 ML IV ONE (20:45)
[2019-09-25 21:14] LABS: BASO % 0.3 % (0.0-1.0); EOS # 0.3 10^3/uL (0.0-0.5); EOS % 2.6 % (0.0-3.0); HEMATOCRIT 43.1 % (36.0-47.0); HEMOGLOBIN 14.4 g/dl (12.0-15.5); LYMPH % 17.3 % (24.0-44.0); MEAN CORPUSCULAR HEMOGLOBIN 31.2 pg (27.0-33.0); MEAN CORPUSCULAR HGB CONC 33.4 g/dl (32.0-36.5); MEAN CORPUSCULAR VOLUME 93.3 fl (80.0-96.0); MONO # 0.8 10^3/uL (0.0-0.8); MONO % 6.8 % (0.0-5.0); NEUTROPHILS # 8.3 10^3/uL (1.5-8.5); NEUTROPHILS % 72.4 % (36.0-66.0); PLATELET COUNT, AUTOMATED 235 10^3/uL (150-450); RED BLOOD COUNT 4.62 10^6/uL (4.00-5.40); WHITE BLOOD COUNT 11.4 10^3/uL (4.0-10.0)
--- NOTE | 2019-09-25 21:30 | REPVR ---
PROCEDURE INFORMATION: Exam: CT Head Without Contrast Exam date and time: 09/25/2019 8:48 PM Age: 73 years old Clinical indication: Altered mental status/memory loss; Confusion or disorientation TECHNIQUE: Imaging protocol: Computed tomography of the head without contrast. Radiation optimization: All CT scans at this facility use at least one of these dose optimization techniques: automated exposure control; mA and/or kV adjustment per patient size (includes targeted exams where dose is matched to clinical indication); or iterative reconstruction. COMPARISON: CT Head without contrast 04/12/2018 8:17 PM FINDINGS: Brain: Decreased attenuation of the supratentorial white matter is likely secondary to chronic microvascular ischemia. No acute intracranial hemorrhage. There are chronic lacunar infarcts involving the basal ganglia and thalami. Ventricles: Ventricular and subarachnoid spaces are age appropriate. Bones/joints: Unremarkable. No acute fracture. Sinuses: Visualized sinuses are unremarkable. No fluid levels. Mastoid air cells: Visualized mastoid air cells are well aerated. Vasculature: Intracranial vascular calcification. Soft tissues: Unremarkable. IMPRESSION: No acute intracranial abnormality. Electronically signed by: Moncho Jin On 09/25/2019 21:29:38 PM
[2019-09-25 21:51] LABS: ALBUMIN 3.5 GM/DL (3.2-5.2); ALT/SGPT 23 U/L (12-78); BILIRUBIN,DIRECT 0.2 MG/DL (0.0-0.2); BILIRUBIN,TOTAL 0.6 MG/DL (0.2-1.0); BLOOD UREA NITROGEN 19 MG/DL (7-18); CALCIUM LEVEL 8.9 MG/DL (8.8-10.2); CARBON DIOXIDE LEVEL 28 MEQ/L (21-32); CHLORIDE LEVEL 111 MEQ/L (98-107); CK-MB VALUE MASS 2.1 NG/ML (<3.6); CPK CREATINE PHOSPHOKINASE 118 U/L (26-192); CREATININE FOR GFR 1.13 MG/DL (0.55-1.30); GLUCOSE, FASTING 82 MG/DL (70-100); MB/CK RELATIVE INDEX 1.78 (< OR =4); POTASSIUM SERUM 3.8 MEQ/L (3.5-5.1); SODIUM LEVEL 142 MEQ/L (136-145); TOTAL PROTEIN 6.9 GM/DL (6.4-8.2); TROPONIN I < 0.02 NG/ML (< 0.10)
[2019-09-25 22:24] VITALS: BP 142/68
--- NOTE | 2019-09-26 00:19 | ECGEPIP ---
[facility] - ED Test Date: 2019-09-25 Pat Name: JUAQUIN CARDOSO Department: Room: - Gender: Female World Designer: anshul : 1945 Requested By: HALEY CHE Order Number: [id number] Reading MD: Sammy Anne Measurements Intervals [place] Rate: 75 P: 22 MO: 132 QRS: -29 QRSD: 110 T: 42 QT: 393 QTc: 441 Interpretive Statements SINUS RHYTHM BORDERLINE LEFT AXIS DEVIATION MINIMAL ST DEPRESSION SIMILAR TO 07/09/17 Electronically Signed on 09-26-2019 0:19:43 EDT by Sammy Anne
--- NOTE | 2019-09-26 08:11 | REP ---
SITTING AP CHEST X-RAY: Single view. HISTORY: Altered mental status. COMPARISON CHEST X-RAY: July 09, 2017. FINDINGS: Monitoring electrodes overlie the chest. There is a mild interstitial fibrosis pattern in the lung bruno unchanged. There is advanced diffuse osteopenia. The thoracic aorta is calcific. Heart is not enlarged. No focal infiltrate is seen. Pulmonary vasculature is not increased. There is some vascular calcification in the carotid arteries in the neck. IMPRESSION: Mild interstitial fibrosis pattern. No acute infiltrate. Electronically Signed by Cj Diego MD 09/26/2019 09:59 A
== END 2019-09-25 22:56 | disposition home or self-care (01) ==
LOC: EDBD 20:24 → M ED 20:24
DX: T67.9XXA Effect of heat and light, unspecified, initial encounter (principal); X30.XXXA Exposure to excessive natural heat, initial encounter; Y92.9 Unspecified place or not applicable; Y93.9 Activity, unspecified; I11.9 Hypertensive heart disease without heart failure; E78.5 Hyperlipidemia, unspecified; L20.89 Other atopic dermatitis; M81.0 Age-related osteoporosis without current pathological fracture; Z86.73 Personal history of transient ischemic attack (TIA), and cerebral infarction without residual deficits; Z90.710 Acquired absence of both cervix and uterus; Z79.899 Other long term (current) drug therapy; Z88.0 Allergy status to penicillin; Z91.040 Latex allergy status

== ENCOUNTER → 2019-10-01 | Outpatient (REF) | payer MEDICARE ==
[2019-10-01 14:44] LABS: HEMATOCRIT 45.5 % (36.0-47.0); HEMOGLOBIN 14.7 g/dl (12.0-15.5); MEAN CORPUSCULAR HEMOGLOBIN 30.9 pg (27.0-33.0); MEAN CORPUSCULAR HGB CONC 32.3 g/dl (32.0-36.5); MEAN CORPUSCULAR VOLUME 95.6 fl (80.0-96.0); PLATELET COUNT, AUTOMATED 263 10^3/uL (150-450); RED BLOOD COUNT 4.76 10^6/uL (4.00-5.40)
[2019-10-01 14:51] LABS: ALBUMIN 3.6 GM/DL (3.2-5.2); ALT/SGPT 25 U/L (12-78); BILIRUBIN,TOTAL 0.6 MG/DL (0.2-1.0); BLOOD UREA NITROGEN 12 MG/DL (7-18); CALCIUM LEVEL 8.8 MG/DL (8.8-10.2); CARBON DIOXIDE LEVEL 28 MEQ/L (21-32); CHLORIDE LEVEL 109 MEQ/L (98-107); CHOLESTEROL LEVEL 129 MG/DL (<200); CHOLESTEROL RISK RATIO 2.224 (<5); CREATININE FOR GFR 0.84 MG/DL (0.55-1.30); GLOMERULAR FILTRATION RATE > 60.0 (>39); GLUCOSE, FASTING 83 MG/DL (70-100); HDL CHOLESTEROL 58 MG/DL (>40); LDL CHOLESTEROL 56 MG/DL (<100); NON-HDL-C 71 MG/DL; SODIUM LEVEL 143 MEQ/L (136-145); TOTAL PROTEIN 7.1 GM/DL (6.4-8.2); TRIGLYCERIDES LEVEL 76 MG/DL (<150)
== END ==
LOC: M SFHCADAM 10:19
PROVIDERS: ATTEND Family Medicine
DX: F44.5 Conversion disorder with seizures or convulsions (principal); I11.9 Hypertensive heart disease without heart failure; E03.9 Hypothyroidism, unspecified; E78.2 Mixed hyperlipidemia

== ENCOUNTER → 2020-07-17 | Outpatient (REF) | payer MEDICARE ==
[~2020-07-17] MED LIST changes: -ALEN70TA74 PO; +ALEN70TA82 PO; +AMLO1TAB24 PO; -AMLO5TAB6 PO; -LISI-538 PO; +LISI10TA22 PO; -LISI10TA4 PO; +LISI20TA33 PO
[2020-07-17 17:22] LABS: HEMATOCRIT 45.9 % (36.0-47.0); HEMOGLOBIN 14.7 g/dl (12.0-15.5); MEAN CORPUSCULAR HEMOGLOBIN 30.6 pg (27.0-33.0); MEAN CORPUSCULAR VOLUME 95.6 fl (80.0-96.0); PLATELET COUNT, AUTOMATED 239 10^3/uL (150-450); WHITE BLOOD COUNT 10.8 10^3/uL (4.0-10.0)
[2020-07-17 17:59] LABS: ALBUMIN 3.7 GM/DL (3.2-5.2); ALT/SGPT 29 U/L (12-78); BILIRUBIN,TOTAL 0.4 MG/DL (0.2-1.0); BLOOD UREA NITROGEN 19 MG/DL (7-18); CALCIUM LEVEL 9.1 MG/DL (8.8-10.2); CARBON DIOXIDE LEVEL 30 MEQ/L (21-32); CHLORIDE LEVEL 108 MEQ/L (98-107); CHOLESTEROL LEVEL 132 MG/DL (<200); CREATININE FOR GFR 0.81 MG/DL (0.55-1.30); FOLATE 22.4 NG/ML (>5.4); FREE T4 1.11 NG/DL (0.76-1.46); GLOMERULAR FILTRATION RATE > 60.0 (>39); GLUCOSE, FASTING 91 MG/DL (70-100); HDL CHOLESTEROL 66 MG/DL (>40); LDL CHOLESTEROL 45 MG/DL (<100); NON-HDL-C 66 MG/DL; POTASSIUM SERUM 4.1 MEQ/L (3.5-5.1); SODIUM LEVEL 141 MEQ/L (136-145); TOTAL PROTEIN 7.3 GM/DL (6.4-8.2); TRIGLYCERIDES LEVEL 104 MG/DL (<150); VITAMIN B12 LEVEL 408 PG/ML (247-911)
== END ==
LOC: M SFHCADAM 14:20
PROVIDERS: ATTEND Family Medicine
DX: E03.9 Hypothyroidism, unspecified (principal); E78.2 Mixed hyperlipidemia; I11.9 Hypertensive heart disease without heart failure; F01.50 Vascular dementia, unspecified severity, without behavioral disturbance, psychotic disturbance, mood disturbance, and anxiety

== ENCOUNTER 2020-10-27 18:23 | Emergency (ER) | payer MEDICARE ==
[~2020-10-27] VITALS: Ht 149.9 cm; Wt 45.9 kg
--- NOTE | 2020-10-27 20:14 | REPVR ---
PROCEDURE INFORMATION: Exam: CT Head Without Contrast Exam date and time: 10/27/2020 8:03 PM Age: 75 years old Clinical indication: Other: CVA; Additional info: CVA - nursing interventions must not delay CT TECHNIQUE: Imaging protocol: Computed tomography of the head without contrast. Radiation optimization: All CT scans at this facility use at least one of these dose optimization techniques: automated exposure control; mA and/or kV adjustment per patient size (includes targeted exams where dose is matched to clinical indication); or iterative reconstruction. Other technique: STROKE PROTOCOL was implemented. COMPARISON: CT Head without contrast 09/25/2019 8:44 PM FINDINGS: Brain: There is volume loss. There is extensive white matter lucency consistent with chronic microvascular disease. There are multiple old white matter, basal ganglia and thalamic lacunar infarcts. There is a small old right cerebellar lacunar infarct. No acute infarct is identified. There is no hemorrhage or extra-axial collection. There is no mass. Cerebral ventricles: There is no hydrocephalus. Paranasal sinuses: Complete opacification of visualized portion of left maxillary sinus. Mastoid air cells: Visualized mastoid air cells are well aerated. Bones/joints: Unremarkable. No acute fracture. Soft tissues: Unremarkable. IMPRESSION: 1. There is extensive chronic microvascular disease. There are multiple old lacunar infarcts. 2. No acute intracranial lesion or injury and no change from prior scan ASSESSMENT: ASPECTS ([place] Stroke Program Early CT Score) is 10. Electronically signed by: Seamus Vargas On 10/27/2020 20:14:18 PM
[2020-10-27] MEDS ORDERED: ULTR0.0511 TOP (20:54)
[2020-10-27] MEDS ORDERED: PRED20TA PO (20:54)
[2020-10-27 20:58] VITALS: BP 175/89
== END 2020-10-27 21:10 | disposition left against medical advice (07) ==
LOC: M ED 18:23
DX: L30.9 Dermatitis, unspecified (principal); F03.90 Unspecified dementia, unspecified severity, without behavioral disturbance, psychotic disturbance, mood disturbance, and anxiety; E03.9 Hypothyroidism, unspecified; E78.5 Hyperlipidemia, unspecified; F33.9 Major depressive disorder, recurrent, unspecified; F41.9 Anxiety disorder, unspecified; I25.2 Old myocardial infarction; Z79.899 Other long term (current) drug therapy; Z88.0 Allergy status to penicillin; Z91.040 Latex allergy status; F17.210 Nicotine dependence, cigarettes, uncomplicated

== ENCOUNTER 2021-07-28 20:54 | Emergency (ER) | payer MEDICARE ==
[~2021-07-28] VITALS: Ht 149.9 cm; Wt 50.0 kg
[2021-07-28 20:54] VITALS: BP 138/82
[~2021-07-28 20:54] MED LIST changes: +PRED20TA PO; +ULTR0.0511 TOP
[2021-07-28] MEDS ORDERED: AMLO1TAB24 (21:10)
[2021-07-28] MEDS ORDERED: ALEN70TA82 (21:10)
[2021-07-28] MEDS ORDERED: ATOR40TA75 (21:10)
[2021-07-28] MEDS ORDERED: LEVO50TA5 (21:10)
[2021-07-28] MEDS ORDERED: LISI20TA33 (21:10)
== END 2021-07-28 23:23 | disposition left against medical advice (07) ==
LOC: M ED 20:54
DX: Z53.21 Procedure and treatment not carried out due to patient leaving prior to being seen by health care provider (principal)